=== PATIENT | female | born 1995 | race Caucasian/White ===

== ENCOUNTER 2020-03-31 23:43 | Emergency (ER) | payer OTHER ==
[~2020-03-31] VITALS: Ht 160 cm; Wt 112.0 kg
[2020-04-01 00:07] VITALS: Ht 160 cm; Wt 112.0 kg
[2020-04-01 03:29] LABS: PLATELET COUNT 298 x10^3mcL (179-408); RED CELL DISTRIBUTION WIDTH 13.5 % (12.3-17.7)
[2020-04-01 04:14] VITALS: BP 121/70
== END 2020-04-01 04:14 | disposition home or self-care (01) ==
LOC: ED 23:43
PROVIDERS: Emergency Medicine
DX: O03.9 Complete or unspecified spontaneous abortion without complication (principal)